=== PATIENT | male | born 1965 | race Caucasian/White ===

== ENCOUNTER 2022-05-12 12:09 | Emergency (ER) | payer OTHER ==
[2022-05-12 12:27] VITALS: BP 144/101; PULSE 72; RESP 16; TEMP 99.1; BMI 33.0
== END 2022-05-12 14:52 | disposition home or self-care (01) ==
LOC: FER 12:09
DX: S09.90XA Unspecified injury of head, initial encounter (principal); M54.2 Cervicalgia; V49.40XA Driver injured in collision with unspecified motor vehicles in traffic accident, initial encounter
CPT/HCPCS: 70450-TC; 72125-TC; 99284-25